=== PATIENT | female | born 1945 | race Caucasian/White ===

== ENCOUNTER 2022-05-05 10:45 | Emergency (ER) | payer MEDICARE, BC | END 2022-05-06 00:07 | disposition home or self-care (01) | LOC: DL.ED 10:45 | DX: I10 Essential (primary) hypertension (principal) | CPT/HCPCS: 93005; 99284 ==

== ENCOUNTER 2023-11-19 15:56 | Emergency (ER) | payer MEDICARE, BC ==
[2023-11-19 16:13] LABS: BASOPHILS PERCENT AUTO 0.4 % (0.0-1.0); EOSINOPHILS PERCENT AUTO 2.7 % (1.0-3.0); HEMATOCRIT 44.4 % (37.0-47.0); HEMOGLOBIN 14.7 g/dL (12.0-16.0); LYMPHOCYTES PERCENT AUTO 38.2 % (20.5-50.1); MEAN CORPUSCULAR HEMOGLOBIN 29.8 pg (27.0-34.0); MEAN CORPUSCULAR HGB CONC 33.1 g/dL (33.0-35.0); MEAN CORPUSCULAR VOLUME 89.9 fL (80-100); MONOCYTES PERCENT AUTO 10.3 % (2-8); NEUTROPHILS PERCENT AUTO 48.4 % (42.2-75.2); PLATELET COUNT,PLT 788 10^3/uL (150-450); RED BLOOD CELL COUNT 4.94 10^6/uL (4.2-5.4); WHITE BLOOD CELL COUNT,WBC 15.1 10^3/uL (5.0-10.0)
[2023-11-19] MEDS: Aspirin 81 MG Tab.Chew PO ONE (16:15)
[2023-11-19] MEDS: Nitroglycerin 0.4 MG Tab.SL SL ONE ×2 (16:17→16:51)
[2023-11-19] MEDS: Sodium Chloride 0.9% 10 ML Syringe FLUSH PRN (16:18)
[2023-11-19] MEDS: Sodium Chloride 0.9% 1,000 ML IV ONE ×2 (16:18→17:01)
[2023-11-19 16:38] LABS: PROTHROMBIN TIME 10.4 SEC (9.0-12.0)
[2023-11-19 16:44] LABS: A/G RATIO 1.3; ANION GAP 12.6 mEq/L (7-13); BILIRUBIN TOTAL 0.4 mg/dL (0.2-1.0); BUN/CREATININE RATIO 17.1 (No establ ref range); CALCIUM 8.8 mg/dL (8.5-10.1); CREATININE 1.11 mg/dL (0.55-1.02); EST CRCL DRUG DOSING (CG) 36.98 mL/min; MAGNESIUM 2.1 mg/dL (1.8-2.4); POTASSIUM,K 3.6 mmol/L (3.5-5.1); PROTEIN TOTAL,TP 7.2 g/dL (6.4-8.2); TSH ULTRASENSITIVE 4.52 uIU/mL (0.36-3.74)
[2023-11-19] MEDS: Ketorolac 30 MG/ML SDV IVPUSH ONE (17:00)
[2023-11-19 17:38] LABS: APPEARANCE,URINE CLEAR (CLEAR); BILIRUBIN,URINE NEGATIVE (NEGATIVE); GLUCOSE,URINE NEGATIVE (NEGATIVE); KETONES,URINE NEGATIVE (NEGATIVE); LEUKOCYTE ESTERASE,URINE TRACE (NEGATIVE); NITRITE,URINE NEGATIVE (NEGATIVE); OCCULT BLOOD,URINE NEGATIVE (NEGATIVE); PROTEIN,URINE NEGATIVE (NEGATIVE); UROBILINOGEN,URINE 0.2 mg/dL (0.2-1.0)
[2023-11-19 17:39] LABS: COLOR,URINE LIGHT YELLOW (YELLOW)
[2023-11-19 17:49] LABS: WBC,URINE 0-5 /HPF (0-5/HPF)
[2023-11-19 17:50] LABS: BACTERIA,URINE RARE /HPF (0-FEW/HPF); EPITHELIAL CELLS,URINE RARE /HPF (NOT SEEN); RBC,URINE NOT SEEN /HPF (0-5)
[2023-11-19 18:17] VITALS: BP 106/87; PULSE 129
[2023-11-19] MEDS ORDERED: Metoprolol Tartrate 5 MG/5 ML SDV IVPUSH ONE (19:32)
[2023-11-19] MEDS ORDERED: Amiodarone 200 MG Tab PO ONE (19:33)
[2023-11-19] MEDS: fentaNYL 100 MCG/2 ML SDV IVPUSH ONE (19:44)
[2023-11-19] MEDS: Apixaban 5 MG Tab PO ONE (19:44)
[2023-11-19] MEDS: Amiodarone 150 MG/3 ML SDV IVPUSH ONE (19:45)
[2023-11-19] MEDS: Midazolam 1 MG/ML 2 ML SDV IVPUSH ONE ×2 (19:46→19:48)
[2023-11-19] MEDS: Midazolam 1 MG/ML 2 ML SDV ONE (19:47)
[2023-11-19] MEDS: Ondansetron 4 MG/2 ML SDV ONE (19:47)
[2023-11-19] MEDS: Ondansetron 4 MG/2 ML SDV IVPUSH ONE (19:48)
== END 2023-11-19 20:39 | disposition home or self-care (01) ==
LOC: DL.ED 15:56
DX: I48.92 Unspecified atrial flutter (principal); I10 Essential (primary) hypertension; E78.00 Pure hypercholesterolemia, unspecified; I25.10 Atherosclerotic heart disease of native coronary artery without angina pectoris; K21.9 Gastro-esophageal reflux disease without esophagitis; E66.9 Obesity, unspecified; Z68.32 Body mass index [BMI] 32.0-32.9, adult; Z88.8 Allergy status to other drugs, medicaments and biological substances; Z88.2 Allergy status to sulfonamides; Z79.82 Long term (current) use of aspirin; Z79.899 Other long term (current) drug therapy
CPT/HCPCS: 36415; 71045; 80053; 81001; 83690; 83735; 84443; 84484; 85025; 85610; 87086; 92960; 93005; 93010; 96374; 96375; 99284; 99285-25; A9270-GY; J0282; J1885; J2250; J2405; J3010; J3490; J7030

== ENCOUNTER 2025-01-30 05:48 | Day surgery (SDC) | payer MEDICARE, BC ==
[2025-01-30] MEDS ORDERED: Lactated Ringers 1,000 ML IV ONE (05:49)
[2025-01-30] MEDS ORDERED: Propofol 200 MG/20 ML SDV IV ONE (05:49)
[2025-01-30] MEDS: Lactated Ringers 1,000 ML IV SCH (06:31)
[2025-01-30 08:10] VITALS: BP 149/60; PULSE 60
[2025-01-30] MEDS ORDERED: Propofol 200 MG/20 ML SDV ONE (08:59)
== END 2025-01-30 08:44 | disposition home or self-care (01) ==
LOC: DL.ENDO 05:48
PROVIDERS: ATTEND Internal Medicine Gastroenterology
DX: K57.30 Diverticulosis of large intestine without perforation or abscess without bleeding (principal); K64.4 Residual hemorrhoidal skin tags; D50.0 Iron deficiency anemia secondary to blood loss (chronic); D75.839 Thrombocytosis, unspecified; K21.9 Gastro-esophageal reflux disease without esophagitis; I25.10 Atherosclerotic heart disease of native coronary artery without angina pectoris; I10 Essential (primary) hypertension; E66.9 Obesity, unspecified; Z88.8 Allergy status to other drugs, medicaments and biological substances; Z88.2 Allergy status to sulfonamides; Z68.32 Body mass index [BMI] 32.0-32.9, adult
CPT/HCPCS: 00812; 99100; J2704; J7120

== ENCOUNTER 2025-02-06 05:50 | Day surgery (SDC) | payer MEDICARE, BC ==
[~2025-02-06 05:50] MED LIST: Propofol 200 MG/20 ML SDV ONE
[2025-02-06] MEDS: Lactated Ringers 1,000 ML IV SCH (06:28)
[2025-02-06 08:47] VITALS: BP 93/68; PULSE 61
== END 2025-02-06 09:10 | disposition home or self-care (01) ==
LOC: DL.ENDO 05:50
PROVIDERS: ATTEND Internal Medicine Gastroenterology
DX: K29.50 Unspecified chronic gastritis without bleeding (principal); K31.7 Polyp of stomach and duodenum; I25.10 Atherosclerotic heart disease of native coronary artery without angina pectoris; I12.9 Hypertensive chronic kidney disease with stage 1 through stage 4 chronic kidney disease, or unspecified chronic kidney disease; N18.9 Chronic kidney disease, unspecified; K31.89 Other diseases of stomach and duodenum; D50.0 Iron deficiency anemia secondary to blood loss (chronic); E66.9 Obesity, unspecified; Z68.32 Body mass index [BMI] 32.0-32.9, adult; Z88.2 Allergy status to sulfonamides; Z88.5 Allergy status to narcotic agent; Z88.8 Allergy status to other drugs, medicaments and biological substances; Z79.899 Other long term (current) drug therapy
CPT/HCPCS: 00731; 43239; 88305; 88342; J7120

== ENCOUNTER 2025-03-12 15:23 | Emergency (ER) | payer MEDICARE, BC ==
[2025-03-12] MEDS ORDERED: Sodium Chloride 0.9% 10 ML Syringe FLUSH PRN (16:04)
[2025-03-12] MEDS: Metoprolol Tartrate 5 MG/5 ML SDV IVPUSH ONE (16:28)
[2025-03-12 16:32] LABS: INR 1.0 (0.9-1.2); PTT,PARTIAL THROMBOPLSTIN TIME 29.2 SEC (22.0-34.0)
[2025-03-12 16:38] LABS: BASOPHILS PERCENT AUTO 0.6 % (0.0-1.0); EOSINOPHILS PERCENT AUTO 2.8 % (1.0-3.0); LYMPHOCYTES PERCENT AUTO 26.4 % (20.5-50.1); MONOCYTES PERCENT AUTO 7.9 % (2-8); NEUTROPHILS PERCENT AUTO 62.3 % (42.2-75.2); PLATELET COUNT,PLT 774 10^3/uL (150-450); RED BLOOD CELL COUNT 4.78 10^6/uL (4.2-5.4); WHITE BLOOD CELL COUNT,WBC 11.9 10^3/uL (5.0-10.0)
[2025-03-12 16:45] LABS: A/G RATIO 1.1; BILIRUBIN TOTAL 0.6 mg/dL (0.2-1.0); BLOOD UREA NITROGEN,BUN 15.0 mg/dL (7-18); GLUCOSE RANDOM 169.0 mg/dL (70-99); PROTEIN TOTAL,TP 7.5 g/dL (6.4-8.2); TSH ULTRASENSITIVE 2.77 uIU/mL (0.36-3.74)
[2025-03-12 16:57] LABS: ALANINE AMINOTRANSFERASE,ALT 34.0 U/L (14-59); ASPARTATE AMNIOTRANSFERASE,AST 19.0 U/L (15-37); CARBON DIOXIDE,CO2 27.0 mmol/L (21-32); CHLORIDE,CL 106.0 mmol/L (98-107); CREATININE 0.97 mg/dL (0.55-1.02); EST CRCL DRUG DOSING (CG) 40.93 mL/min; POTASSIUM,K 4.0 mmol/L (3.5-5.1); SODIUM,NA 141.0 mmol/L (136-145)
[2025-03-12 17:02] LABS: ESTIMATED GFR 59.0 mL/min (>=60)
[2025-03-12] MEDS: Diltiazem 25 MG/5 ML SDV IVPUSH ONE (17:25)
[2025-03-12 18:45] VITALS: PULSE 66
[2025-03-12 20:14] VITALS: BP 146/61
== END 2025-03-12 20:10 | disposition home or self-care (01) ==
LOC: DL.ED 15:23
DX: I48.91 Unspecified atrial fibrillation (principal); I10 Essential (primary) hypertension; E78.00 Pure hypercholesterolemia, unspecified; I25.10 Atherosclerotic heart disease of native coronary artery without angina pectoris; Z88.8 Allergy status to other drugs, medicaments and biological substances; Z88.2 Allergy status to sulfonamides; Z79.899 Other long term (current) drug therapy
CPT/HCPCS: 36415; 71045; 80053; 83735; 84443; 84484; 85025; 85610; 85730; 93005; 93010; 96374; 96375; 99285; A9270; J3490

== ENCOUNTER 2025-03-31 03:43 | Emergency (ER) | payer MEDICARE, BC ==
[2025-03-31 04:26] LABS: BASOPHILS PERCENT AUTO 0.3 % (0.0-1.0); EOSINOPHILS PERCENT AUTO 3.9 % (1.0-3.0); LYMPHOCYTES PERCENT AUTO 30.6 % (20.5-50.1); MONOCYTES PERCENT AUTO 10.8 % (2-8); NEUTROPHILS PERCENT AUTO 54.4 % (42.2-75.2); PLATELET COUNT,PLT 749 10^3/uL (150-450); RED BLOOD CELL COUNT 4.68 10^6/uL (4.2-5.4); WHITE BLOOD CELL COUNT,WBC 10.7 10^3/uL (5.0-10.0)
[2025-03-31] MEDS: GI Cocktail Oral Solution 30 ML PO ONE (04:26)
[2025-03-31 04:50] LABS: A/G RATIO 1.2; ALANINE AMINOTRANSFERASE,ALT 33.0 U/L (14-59); ASPARTATE AMNIOTRANSFERASE,AST 23.0 U/L (15-37); BILIRUBIN TOTAL 0.3 mg/dL (0.2-1.0); BLOOD UREA NITROGEN,BUN 15.0 mg/dL (7-18); CARBON DIOXIDE,CO2 28.0 mmol/L (21-32); CHLORIDE,CL 105.0 mmol/L (98-107); CREATININE 0.99 mg/dL (0.55-1.02); EST CRCL DRUG DOSING (CG) 40.1 mL/min; ESTIMATED GFR 57.0 mL/min (>=60); GLUCOSE RANDOM 108.0 mg/dL (70-99); POTASSIUM,K 3.9 mmol/L (3.5-5.1); PROTEIN TOTAL,TP 6.8 g/dL (6.4-8.2); SODIUM,NA 142.0 mmol/L (136-145)
[2025-03-31 05:00] LABS: LACTIC ACID 1.2 mmol/L (0.4-2.0)
[2025-03-31 06:49] VITALS: BP 171/66; PULSE 66
== END 2025-03-31 07:10 | disposition home or self-care (01) ==
LOC: DL.ED 03:43
DX: R07.89 Other chest pain (principal); I25.10 Atherosclerotic heart disease of native coronary artery without angina pectoris; E78.00 Pure hypercholesterolemia, unspecified; K21.9 Gastro-esophageal reflux disease without esophagitis; I12.9 Hypertensive chronic kidney disease with stage 1 through stage 4 chronic kidney disease, or unspecified chronic kidney disease; N18.9 Chronic kidney disease, unspecified; Z88.8 Allergy status to other drugs, medicaments and biological substances; Z88.2 Allergy status to sulfonamides; Z79.82 Long term (current) use of aspirin; Z79.899 Other long term (current) drug therapy; Z79.01 Long term (current) use of anticoagulants
CPT/HCPCS: 36415; 71045; 80053; 83605; 83690; 83735; 84484; 85025; 93005; 99284; A9270